=== PATIENT | male | born 1950 | race Caucasian/White ===

== ENCOUNTER 2017-12-29 07:28 | Emergency (ER) | payer OTHER ==
[~2017-12-29] VITALS: Ht 172.7 cm; Wt 90.3 kg
== END 2017-12-29 08:16 | disposition home or self-care (01) ==
LOC: FSED 07:28
DX: R05 Cough (principal); J00 Acute nasopharyngitis [common cold]; J04.0 Acute laryngitis; J44.1 Chronic obstructive pulmonary disease with (acute) exacerbation; I10 Essential (primary) hypertension
CPT/HCPCS: 99283

== ENCOUNTER 2019-10-20 13:10 | Emergency (ER) | payer MEDICARE, OTHER ==
[~2019-10-20] VITALS: Ht 172.7 cm; Wt 90.3 kg
[2019-10-20] MEDS: ONDANSETRON HCL 4 MG ORAL DISINTEGRATING TAB PO ONE (14:07)
[2019-10-20] MEDS: IBUPROFEN 600 MG TAB PO ONE (14:07)
[2019-10-20] MEDS: ACETAMINOPHEN 325 MG TAB PO ONE (14:08)
--- NOTE | 2019-10-20 15:43 | NUR ---
DR. MCKEON AT BEDSIDE SPEAKING WITH PATIENT REGARDING PLACING IV, OBTAINING BLOOD WORK AND TRANSFERING HIM TO ANOTHER FACILITY
--- NOTE | 2019-10-20 15:46 | Diagnostic Imaging Report ---
History: Fall bending down. Back pain Comparison studies: None Technique: Axial images were obtained from T11 through the sacrum. Coronal and sagittal images reconstructed from the axial data. Intravenous contrast: None Dose modulation, iterative reconstruction, and/or weight based adjustment of the mA/kV was utilized to reduce the radiation dose to as low as reasonably achievable. Findings: Number of non-rib bearing vertebral bodies: 5 Alignment: Mild kyphotic deformity at the thoracolumbar junction. Levoscoliosis centered at L3. Soft tissues: Para vertebral fatty stranding adjacent to T12. The right kidney is replaced by a multilobulated cystic lesions. Atherosclerotic calcifications of the abdominal aorta and branches. Partially visualized fluid density structure at the left lateral pelvis abutting the aortic bifurcation and iliac muscle. Paraspinal muscles: Unremarkable. Vertebrae: Distraction fracture with wedging of T12 vertebral body with approximately 50-60% loss of height anteriorly, fracture extends to the bilateral pedicles, facet joint and T11 spinous process. Degenerative changes: L1-L2: Disc degeneration with decreased intervertebral space and vacuum disc phenomenon. Patent canal and foramina L2-L3: Disc degeneration with decreased intervertebral space and vacuum disc phenomenon, grossly patent canal and foramina L3-L4: Disc degeneration with decreased intervertebral space, vacuum disc phenomena and endplate sclerosis. Asymmetric left disc bulge and mild facet hypertrophy results in mild canal stenosis, severe right and mild left foraminal narrowing. Air focus at the right lateral recess. L4-L5: Diffuse disc bulge results in mild canal stenosis and mild right foraminal narrowing L5-S1: Patent canal and foramina Sacroiliac joints: Minimal degenerative changes. IMPRESSION: 1. T12 acute distraction fracture with involvement of the posterior elements (AOS B1). No retropulsion. 2. Severe right degenerative foraminal narrowing at the L3-4. Other degenerative changes of the lumbar spine as described above. 3. Partially visualized cystic lesion of the left lateral pelvis as described above, further evaluation with ultrasound recommended. 4. Polycystic right kidney. Signed by: DR Reuben Ley M.D. on 10/20/2019 3:44 PM
--- NOTE | 2019-10-20 15:47 | NUR ---
SPOKE WITH SILVANA, [employer]. THERE ARE NO BACK BRACES AVAILABLE IN THE HOSPITAL
[2019-10-20 16:16] LABS: BASOPHILS % 0.5 % (0.0-1.0); EOSINOPHILS # (AUTO) 0.3 (0.0-0.4); EOSINOPHILS % 4.6 % (0.0-6.0); HEMATOCRIT 43.2 % (38.2-49.6); LYMPHOCYTES # (AUTO) 1.1 (1.0-3.2); LYMPHOCYTES % 16.8 % (18.0-39.1); MEAN CORPUSCULAR HEMOGLOBIN 28.8 pg (28-32); MEAN CORPUSCULAR HGB CONC 32.4 g/dL (31-35); MEAN CORPUSCULAR VOLUME 88.9 fL (81-99); MONOCYTES # (AUTO) 0.7 (0.2-0.8); NEUTROPHILS # (AUTO) 4.4 (2.1-6.9); NEUTROPHILS % 67.8 % (38.7-80.0); PLATELET COUNT 151 x10e3/uL (140-360); RED BLOOD COUNT 4.86 x10e6/uL (4.3-5.7); RED CELL DISTRIBUTION WIDTH 14.3 % (11.7-14.4)
[2019-10-20 16:25] LABS: INR 0.99; PROTHROMBIN TIME 13.7 seconds (11.9-14.5)
[2019-10-20 16:26] LABS: PARTIAL THROMBOPLASTIN TIME 30.9 seconds (23.8-35.5)
[2019-10-20 16:34] LABS: ALBUMIN 3.8 g/dL (3.5-5.0); ALBUMIN/GLOBULIN RATIO 1.2 (0.8-2.0); ANION GAP 13.4 mmol/L (8-16); CALCIUM 9.8 mg/dL (8.4-10.2); CREATININE, SERUM 1.63 mg/dL (0.72-1.25); POTASSIUM 4.4 mmol/L (3.5-5.1)
--- NOTE | 2019-10-20 16:49 | NUR ---
REPORT TO DAVE Carbajal PATIENT TRANSFERING TO [facility]
== END 2019-10-20 17:51 | disposition other institution (70) ==
LOC: ER 13:10
DX: S22.080A Wedge compression fracture of T11-T12 vertebra, initial encounter for closed fracture (principal); W01.0XXA Fall on same level from slipping, tripping and stumbling without subsequent striking against object, initial encounter; Y92.008 Other place in unspecified non-institutional (private) residence as the place of occurrence of the external cause; I10 Essential (primary) hypertension; I51.9 Heart disease, unspecified; J44.9 Chronic obstructive pulmonary disease, unspecified; Z87.442 Personal history of urinary calculi; Z87.891 Personal history of nicotine dependence
CPT/HCPCS: 36415; 72131; 80053; 85025; 85610; 85730; 99284; Q0162